=== PATIENT | male | born 1970 | race Caucasian/White ===

== ENCOUNTER → 2016-06-27 | Day surgery (SDC) | payer OTHER | END | disposition home or self-care (01) | LOC: FAS 09:09 | DX: S93.431A Sprain of tibiofibular ligament of right ankle, initial encounter (principal); I10 Essential (primary) hypertension; Z88.8 Allergy status to other drugs, medicaments and biological substances; Z79.82 Long term (current) use of aspirin; Z79.899 Other long term (current) drug therapy | CPT/HCPCS: 73600; 76000; 93005; J0690; J2704; J2795; J3010 ==